=== PATIENT | male | born 1995 | race Caucasian/White ===

== ENCOUNTER 2017-03-10 16:05 | Emergency (ER) | payer OTHER ==
[2017-03-10 16:35] VITALS: PULSE 94; RESP 18; TEMP 98.5
[2017-03-10] MEDS ORDERED: LORazepam 2 MG/ML INJ IM STA (17:04)
[2017-03-10] MEDS ORDERED: diphenhydrAMINE 50 MG/ML 1 ML VIAL IM STA (17:04)
[2017-03-10] MEDS ORDERED: HALOPERIDOL LACTATE 5 MG/ML 1 ML VIAL IM PRN (17:04)
--- NOTE | 2017-03-10 19:49 | ED ---
Psych HPI - General Chief Complaint: Psychiatric Symptoms Stated Complaint: petitioned Time Seen by Provider: 03/10/17 16:36 Source: police, EMS Mode of arrival: EMS - History of Present Illness Initial Comments: 21-year-old development of delayed and nonverbal male presented for evaluation of aggressive behavior. He is at a alf and they state that he has been becoming more aggressive over the last day and hyperactive. There is been no fevers or and occasions of infection as the patient and he has not been coughing or having runny nose. They state he is always very active however today he got so agitated that he took 4 homeworkers to hold him down and prevent from hurting others or himself. - Related Data Home Medications Medication Instructions Recorded Confirmed Divalproex [Depakote] 1,500 mg PO HS 03/10/17 03/10/17 OLANZapine [ZyPREXA] 10 mg PO BID 03/10/17 03/10/17 cloNIDine HCL 0.3 mg PO HS 03/10/17 03/10/17 risperiDONE [RisperDAL] 1 mg PO BID 03/10/17 03/10/17 Allergies Allergy/AdvReac Type Severity Reaction Status Date / Time No Known Allergies Allergy Verified 03/10/17 16:57 Review of Systems ROS Statement: Those systems with pertinent positive or pertinent negative responses have been documented in the HPI. Limited due to patient's nonverbal status. ROS Other: All systems not noted in ROS Statement are negative. Constitutional: Denies: fever, weight change Eyes: Denies: eye discharge ENT: Denies: ear pain, congestion Respiratory: Denies: cough, wheezes Cardiovascular: Denies: edema, syncope Endocrine: Denies: polydipsia, polyuria Gastrointestinal: Denies: vomiting, diarrhea, constipation Genitourinary: Denies: hematuria, discharge Skin: Denies: rash, lesions Neurological: Denies: weakness, abnormal gait Psychiatric: Reports: other (Agitation) Hematological/Lymphatic: Denies: easy bleeding, easy bruising Past Medical History Past Medical History: Unable to Obtain Additional Past Medical History / Comment(s): autism History of Any Multi-Drug Resistant Organisms: Unobtainable Past Surgical History: Unable to Obtain Past Psychological History: ADD/ADHD Smoking Status: Unknown if ever smoked Past Alcohol Use History: Unable to Obtain Past Drug Use History: Unable to Obtain General Exam Limitations: no limitations General appearance: alert, other (Constant movement pacing around room) Head exam: Present: atraumatic, normocephalic, normal inspection Eye exam: Present: normal appearance, PERRL, EOMI. Absent: scleral icterus, conjunctival injection, periorbital swelling ENT exam: Present: normal exam, mucous membranes moist Neck exam: Present: normal inspection. Absent: tenderness, meningismus, lymphadenopathy Respiratory exam: Present: normal lung sounds bilaterally. Absent: respiratory distress, wheezes, rales, rhonchi, stridor Cardiovascular Exam: Present: regular rate, normal rhythm, normal heart sounds. Absent: systolic murmur, diastolic murmur, rubs, gallop, clicks GI/Abdominal exam: Present: soft, normal bowel sounds. Absent: distended, tenderness, guarding, rebound, rigid Rectal exam: Present: deferred Extremities exam: Present: normal inspection, full ROM, normal capillary refill. Absent: tenderness, pedal edema, joint swelling, calf tenderness Back exam: Present: normal inspection Neurological exam: Present: normal gait, other (At baseline per care workers) Psychiatric exam: Present: normal affect, normal mood Skin exam: Present: warm, dry, intact, normal color. Absent: rash Course Vital Signs 03/10/17 16:20 Temperature 98.5 F Pulse Rate 94 Respiratory 18 Rate O2 Sat by Pulse 100 Oximetry Medical Decision Making - Medical Decision Making 21-year-old developmentally delayed and nonverbal male presented from alf for agitation. Upon arrival to the ED he is pacing back and forth and initially was cooperative. However was care workers arrive to became agitated and was not really hitting himself on the wall but hitting his hands on the wall as well as his head. Concern for the patient's well-being with him getting sedated however he continued to pace mildly but was able to relax and sit down. [facility] to [facility] the patient and discovered that he had been having increasing agitation over the last couple weeks and that there is been plans to have admitted to [facility] however there were pending approval by the director medical surgical. The patient was discussed with in-house psych however the patient's mother arrived after seeing him having calm down she stated that she would like to take him home with her and not back to the home. This is discussed with the in-house psychiatrist who agreed with this plan of care. The patient was stable at time of discharge. Mother was informed that she should return to this ED if her symptoms should worsen or persist. The patient's mother acknowledged an understanding of all information provided and agreed with this plan of care. Disposition Clinical Impression: Combative behavior, Bizarre behavior Disposition: HOME SELF-CARE Condition: Stable Instructions: Acute Delirium (ED), Altered Mental Status (ED) Additional Instructions: Please follow up with your PCP and the care facility. If symptoms should worsen or persist please return to the ED for further evaluation. Referrals: Garry Veliz MD [Primary Care Provider] - 1-2 days Time of Disposition: 19:48
== END 2017-03-10 20:19 | disposition home or self-care (01) ==
LOC: EC 16:05
DX: F91.8 Other conduct disorders (principal); F90.9 Attention-deficit hyperactivity disorder, unspecified type; F84.0 Autistic disorder; Z79.899 Other long term (current) drug therapy
CPT/HCPCS: 99284; 96372 ×3; J2060; J1200; J1630

== ENCOUNTER 2019-02-16 10:02 | Emergency (ER) | payer OTHER ==
[2019-02-16 10:14] VITALS: RESP 18
[2019-02-16] MEDS ORDERED: LORazepam 2 MG/ML INJ IV STA (10:35)
[2019-02-16] MEDS ORDERED: SODIUM CHLORIDE 0.9% 1,000 ML IV STA (10:35)
[2019-02-16] MEDS ORDERED: SODIUM CHLORIDE 0.9% 1,000 ML IV ONE (10:38)
--- NOTE | 2019-02-16 10:42 | ED ---
Seizure HPI - General Chief Complaint: Seizure Stated Complaint: Seizure Time Seen by Provider: 02/16/19 10:09 Source: patient, RN notes reviewed, old records reviewed, Caregiver Mode of arrival: EMS Limitations: physical limitation - History of Present Illness Initial Comments: Patient is a 23-year-old male with history of autism. Patient caregiver and father reports that he's been having some [place] description of seizures over the past month. Patient has seen his primary care doctor yesterday and they're scheduled to see a neurologist in the upcoming future. Today while school Patient had a tonic-clonic seizure that lasted approximately 3 minutes. Patient went to the ground, , full and his face. He denies any other specific pains at this time. Patient does have multiple abrasions and contusions over his face. Patient's she reports that he was walking with a abnormal gait prior to his seizure. - Related Data Home Medications Medication Instructions Recorded Confirmed Divalproex [Depakote] 1,500 mg PO HS 03/10/17 03/10/17 OLANZapine [ZyPREXA] 10 mg PO BID 03/10/17 03/10/17 cloNIDine HCL 0.3 mg PO HS 03/10/17 03/10/17 risperiDONE [RisperDAL] 1 mg PO BID 03/10/17 03/10/17 Previous Rx's Medication Instructions Recorded levETIRAcetam [Keppra] 1,000 mg PO Q12HR #40 tab 02/16/19 Allergies Allergy/AdvReac Type Severity Reaction Status Date / Time No Known Allergies Allergy Verified 02/16/19 10:15 Review of Systems ROS Statement: Those systems with pertinent positive or pertinent negative responses have been documented in the HPI. ROS Other: All systems not noted in ROS Statement are negative. Past Medical History Past Medical History: Unable to Obtain Additional Past Medical History / Comment(s): autism History of Any Multi-Drug Resistant Organisms: Unobtainable Past Surgical History: Unable to Obtain Past Psychological History: ADD/ADHD Smoking Status: Unknown if ever smoked Past Alcohol Use History: Unable to Obtain Past Drug Use History: Unable to Obtain General Exam Limitations: physical limitation General appearance: alert, in no apparent distress Head exam: Present: atraumatic, normocephalic, normal inspection Eye exam: Present: normal appearance, PERRL, EOMI. Absent: scleral icterus, conjunctival injection, periorbital swelling ENT exam: Present: normal exam, mucous membranes moist, other (Patient has swelling, significant contusion over the bridge of the nose. Abrasions noted. Oh no open lacerations at this time.) Neck exam: Present: normal inspection. Absent: tenderness, meningismus, lymphadenopathy Respiratory exam: Present: normal lung sounds bilaterally. Absent: respiratory distress, wheezes, rales, rhonchi, stridor Cardiovascular Exam: Present: regular rate, normal rhythm, normal heart sounds. Absent: systolic murmur, diastolic murmur, rubs, gallop, clicks GI/Abdominal exam: Present: soft, normal bowel sounds. Absent: distended, tenderness, guarding, rebound, rigid Extremities exam: Present: normal inspection Back exam: Present: normal inspection Neurological exam: Present: alert, oriented X3, CN II-XII intact Psychiatric exam: Present: normal affect, normal mood Course Vital Signs 02/16/19 02/16/19 02/16/19 10:06 10:17 11:29 Temperature 98 F 97.9 F Pulse Rate 145 H 121 H Respiratory 18 18 Rate Blood Pressure 121/77 124/93 O2 Sat by Pulse 98 98 Oximetry 02/16/19 02/16/19 02/16/19 14:27 14:46 14:48 Temperature 98 F 98 F Pulse Rate 115 H 88 88 Respiratory 18 18 18 Rate Blood Pressure 139/98 167/88 167/88 O2 Sat by Pulse 100 97 97 Oximetry Medical Decision Making - Medical Decision Making 23 year old male with new onset tonic clonic seizure today, with recent history of petit mal description of seizures this past month. Patient saw PCP yesterday, adn had refferall to neuro, but has not had opportunity for follow up at this time. HE hit his face on floor while seizing, and became more aroused in ED. CT brain and cspine and facial bone completed. No acute process identified, besides soft tissue swelling. No fracture, hemorrhages, or masses. LAbs were reviewed and unremarkable. He did receive ativan in ED due to anxiety and agitation prior to CT. PAtient case discussed with Dr. Lynn, internet marketing consultant neurology. Discussed at this time patient should be started on keppra. Discussed possible admission, but family prefers to start medication and follow up outpatiently as previously planned. Abrasions were cleaned over face, discussed motrin and tylenol use. Given loading dose of keppra. - Lab Data Result diagrams: 02/16/19 10:30 02/16/19 10:30 Lab Results 02/16/19 02/16/19 02/16/19 Range/Units 10:30 10:30 10:30 WBC 7.3 (3.8-10.6) k/uL RBC 4.65 (4.30-5.90) m/uL Hgb 14.1 (13.0-17.5) gm/dL Hct 42.5 (39.0-53.0) % MCV 91.4 (80.0-100.0) fL MCH 30.3 (25.0-35.0) pg MCHC 33.2 (31.0-37.0) g/dL RDW 12.9 (11.5-15.5) % Plt Count 152 (150-450) k/uL Neutrophils % 58 % Lymphocytes % 29 % Monocytes % 9 % Eosinophils % 3 % Basophils % 0 % Neutrophils # 4.2 (1.3-7.7) k/uL Lymphocytes # 2.1 (1.0-4.8) k/uL Monocytes # 0.6 (0-1.0) k/uL Eosinophils # 0.2 (0-0.7) k/uL Basophils # 0.0 (0-0.2) k/uL PT 11.1 (9.0-12.0) sec INR 1.0 (<1.2) APTT 24.9 (22.0-30.0) sec Sodium (137-145) mmol/L Potassium (3.5-5.1) mmol/L Chloride (98-107) mmol/L Carbon Dioxide (22-30) mmol/L Anion Gap mmol/L BUN (9-20) mg/dL Creatinine (0.66-1.25) mg/dL Est GFR (CKD-EPI)AfAm (>60 ml/min/1.73 sqM) Est GFR (CKD-EPI)NonAf (>60 ml/min/1.73 sqM) Glucose (74-99) mg/dL POC Glucose (mg/dL) (75-99) mg/dL POC Glu [employer] Instructor ID Calcium (8.4-10.2) mg/dL Magnesium 1.9 (1.6-2.3) mg/dL Total Bilirubin (0.2-1.3) mg/dL AST (17-59) U/L ALT (21-72) U/L Alkaline Phosphatase (38-126) U/L Troponin I (0.000-0.034) ng/mL Total Protein (6.3-8.2) g/dL Albumin (3.5-5.0) g/dL Urine Color Urine Appearance (Clear) Urine pH (5.0-8.0) Ur Specific [place] (1.001-1.035) Urine Protein (Negative) Urine Glucose (UA) (Negative) Urine Ketones (Negative) Urine Blood (Negative) Urine Nitrite (Negative) Urine Bilirubin (Negative) Urine Urobilinogen (<2.0) mg/dL Ur Leukocyte Esterase (Negative) Urine Opiates Screen (NotDetected) Ur Oxycodone Screen (NotDetected) Urine Methadone Screen (NotDetected) Ur Propoxyphene Screen (NotDetected) Ur Barbiturates Screen (NotDetected) Valproic Acid ug/mL U Tricyclic Antidepress (NotDetected) Ur Phencyclidine Scrn (NotDetected) Ur Amphetamines Screen (NotDetected) U Methamphetamines Scrn (NotDetected) U Benzodiazepines Scrn (NotDetected) Urine Cocaine Screen (NotDetected) U Marijuana (THC) Screen (NotDetected) 02/16/19 02/16/19 02/16/19 Range/Units 10:30 10:30 10:30 WBC (3.8-10.6) k/uL RBC (4.30-5.90) m/uL Hgb (13.0-17.5) gm/dL Hct (39.0-53.0) % MCV (80.0-100.0) fL MCH (25.0-35.0) pg MCHC (31.0-37.0) g/dL RDW (11.5-15.5) % Plt Count (150-450) k/uL Neutrophils % % Lymphocytes % % Monocytes % % Eosinophils % % Basophils % % Neutrophils # (1.3-7.7) k/uL Lymphocytes # (1.0-4.8) k/uL Monocytes # (0-1.0) k/uL Eosinophils # (0-0.7) k/uL Basophils # (0-0.2) k/uL PT (9.0-12.0) sec INR (<1.2) APTT (22.0-30.0) sec Sodium 137 (137-145) mmol/L Potassium 3.7 (3.5-5.1) mmol/L Chloride 103 (98-107) mmol/L Carbon Dioxide 20 L (22-30) mmol/L Anion Gap 14 mmol/L BUN 15 (9-20) mg/dL Creatinine 0.93 (0.66-1.25) mg/dL Est GFR (CKD-EPI)AfAm >90 (>60 ml/min/1.73 sqM) Est GFR (CKD-EPI)NonAf >90 (>60 ml/min/1.73 sqM) Glucose 146 H (74-99) mg/dL POC Glucose (mg/dL) (75-99) mg/dL POC Glu [employer] Instructor ID Calcium 9.0 (8.4-10.2) mg/dL Magnesium (1.6-2.3) mg/dL Total Bilirubin 0.7 (0.2-1.3) mg/dL AST 31 (17-59) U/L ALT 35 (21-72) U/L Alkaline Phosphatase 71 (38-126) U/L Troponin I <0.012 (0.000-0.034) ng/mL Total Protein 6.7 (6.3-8.2) g/dL Albumin 4.2 (3.5-5.0) g/dL Urine Color Urine Appearance (Clear) Urine pH (5.0-8.0) Ur Specific [place] (1.001-1.035) Urine Protein (Negative) Urine Glucose (UA) (Negative) Urine Ketones (Negative) Urine Blood (Negative) Urine Nitrite (Negative) Urine Bilirubin (Negative) Urine Urobilinogen (<2.0) mg/dL Ur Leukocyte Esterase (Negative) Urine Opiates Screen (NotDetected) Ur Oxycodone Screen (NotDetected) Urine Methadone Screen (NotDetected) Ur Propoxyphene Screen (NotDetected) Ur Barbiturates Screen (NotDetected) Valproic Acid 69.2 ug/mL U Tricyclic Antidepress (NotDetected) Ur Phencyclidine Scrn (NotDetected) Ur Amphetamines Screen (NotDetected) U Methamphetamines Scrn (NotDetected) U Benzodiazepines Scrn (NotDetected) Urine Cocaine Screen (NotDetected) U Marijuana (THC) Screen (NotDetected) 02/16/19 02/16/19 Range/Units 10:43 11:57 WBC (3.8-10.6) k/uL RBC (4.30-5.90) m/uL Hgb (13.0-17.5) gm/dL Hct (39.0-53.0) % MCV (80.0-100.0) fL MCH (25.0-35.0) pg MCHC (31.0-37.0) g/dL RDW (11.5-15.5) % Plt Count (150-450) k/uL Neutrophils % % Lymphocytes % % Monocytes % % Eosinophils % % Basophils % % Neutrophils # (1.3-7.7) k/uL Lymphocytes # (1.0-4.8) k/uL Monocytes # (0-1.0) k/uL Eosinophils # (0-0.7) k/uL Basophils # (0-0.2) k/uL PT (9.0-12.0) sec INR (<1.2) APTT (22.0-30.0) sec Sodium (137-145) mmol/L Potassium (3.5-5.1) mmol/L Chloride (98-107) mmol/L Carbon Dioxide (22-30) mmol/L Anion Gap mmol/L BUN (9-20) mg/dL Creatinine (0.66-1.25) mg/dL Est GFR (CKD-EPI)AfAm (>60 ml/min/1.73 sqM) Est GFR (CKD-EPI)NonAf (>60 ml/min/1.73 sqM) Glucose (74-99) mg/dL POC Glucose (mg/dL) 149 H (75-99) mg/dL POC Glu [employer] Instructor ID Barbara Chavez Calcium (8.4-10.2) mg/dL Magnesium (1.6-2.3) mg/dL Total Bilirubin (0.2-1.3) mg/dL AST (17-59) U/L ALT (21-72) U/L Alkaline Phosphatase (38-126) U/L Troponin I (0.000-0.034) ng/mL Total Protein (6.3-8.2) g/dL Albumin (3.5-5.0) g/dL Urine Color Yellow Urine Appearance Clear (Clear) Urine pH 6.5 (5.0-8.0) Ur Specific [place] 1.010 (1.001-1.035) Urine Protein Negative (Negative) Urine Glucose (UA) Negative (Negative) Urine Ketones Negative (Negative) Urine Blood Negative (Negative) Urine Nitrite Negative (Negative) Urine Bilirubin Negative (Negative) Urine Urobilinogen <2.0 (<2.0) mg/dL Ur Leukocyte Esterase Negative (Negative) Urine Opiates Screen Not Detected (NotDetected) Ur Oxycodone Screen Not Detected (NotDetected) Urine Methadone Screen Not Detected (NotDetected) Ur Propoxyphene Screen Not Detected (NotDetected) Ur Barbiturates Screen Not Detected (NotDetected) Valproic Acid ug/mL U Tricyclic Antidepress Detected H (NotDetected) Ur Phencyclidine Scrn Not Detected (NotDetected) Ur Amphetamines Screen Not Detected (NotDetected) U Methamphetamines Scrn Not Detected (NotDetected) U Benzodiazepines Scrn Not Detected (NotDetected) Urine Cocaine Screen Not Detected (NotDetected) U Marijuana (THC) Screen Not Detected (NotDetected) 02/16/19 11:15 EKG performed at 1037 shows sinus tachycardia nonspecific T-wave abnormality. Abnormal EKG. Ventricular rate of 132 bpm. Care was 124 ms. QS duration is 84 ms. QT QTc is 306/453 ms. - Radiology Data Radiology results: report reviewed No acute free fracture dislocation evident cervical spine. [facility] urgent elective to seen. small acute scalp hematoma over the right frontal sinus. no acute dyspnea placed facial bone fracture. chest x-rays negative for any acute process. Disposition Clinical Impression: Seizure disorder Disposition: HOME SELF-CARE Condition: Good Instructions (If sedation given, give patient instructions): New-Onset Seizure in Adults (ED) Additional Instructions: Patient is recommended to start the Keppra as discussed. Follow up outpatient only with neurology. Return to the emergency department if any alarming signs o r symptoms occur. Prescriptions: levETIRAcetam [Keppra] 1,000 mg PO Q12HR #40 tab Is patient prescribed a controlled substance at d/c from ED?: No Referrals: Garry Veliz MD [Primary Care Provider] - 1-2 days Dario Coulter MD [Medical Doctor] - 1-2 days Vikash Nixon DO [STAFF PHYSICIAN] - 1-2 days Time of Disposition: 14:00
[2019-02-16 10:46] LABS: Glucose,Whole Blood 149 mg/dL (75-99)
[2019-02-16 11:04] LABS: Basophils % (A) 0 %; Eosinophils # (A) 0.2 k/uL (0-0.7); Eosinophils % (A) 3 %; HCT 42.5 % (39.0-53.0); HGB 14.1 gm/dL (13.0-17.5); Lymphocytes # (A) 2.1 k/uL (1.0-4.8); Lymphocytes % (A) 29 %; MCH 30.3 pg (25.0-35.0); MCHC 33.2 g/dL (31.0-37.0); MCV 91.4 fL (80.0-100.0); Mean Platelet Volume 8.5; Monocytes # (A) 0.6 k/uL (0-1.0); Monocytes % (A) 9 %; Neutrophils # (A) 4.2 k/uL (1.3-7.7); Neutrophils % (A) 58 %; Platelet Count 152 k/uL (150-450); RBC 4.65 m/uL (4.30-5.90); RDW 12.9 % (11.5-15.5); WBC 7.3 k/uL (3.8-10.6)
[2019-02-16 11:20] LABS: Partial Thromboplastin Time 24.9 sec (22.0-30.0); Prothrombin Time 11.1 sec (9.0-12.0)
--- NOTE | 2019-02-16 11:22 | XR ---
EXAMINATION TYPE: XR chest 2V DATE OF EXAM: 02/16/2019 COMPARISON: NONE HISTORY: Altered mental status TECHNIQUE: Frontal and lateral views of the chest are obtained. FINDINGS: There is no focal air space opacity, pleural effusion, or pneumothorax seen. The cardiac silhouette size is within normal limits. The osseous structures are intact. IMPRESSION: No acute cardiopulmonary process.
--- NOTE | 2019-02-16 11:29 | CT ---
EXAMINATION TYPE: CT brain cspine wo con, CT facial bones wo con DATE OF EXAM: 02/16/2019 COMPARISON: NONE HISTORY: Seizure today with facial pain, headache, and neck pain. CT DLP: 1167 mGycm. Automated Exposure Control for Dose Reduction was Utilized. TECHNIQUE: CT scan of the head and cervical spine are performed without contrast. FINDINGS: There is no acute intracranial hemorrhage, mass effect, or midline shift identified. The ventricles and sulci are within normal limits in size. Hernández-white matter differentiation fairly well maintained. The calvarium is intact. Mandible is intact. Temporomandibular joints are maintained bilaterally. Nasal bones are intact. Orbi grupo floors and brewer are intact. The globes are intact bilaterally. Intraconal fat is preserved. Zygo matic arches are intact. Pterygoid plates are intact. Visualized maxilla is intact. Small degree of m ucosal thickening in the inferior aspect bilateral maxillary sinuses. Some dependent fluid inferiorly left frontal sinus. Additional patchy dependent fluid posterior ethmoid sinuses. Patchy fluid left s phenoid sinus. Small hematoma over the right frontal sinus noted seen best coronal image 10. Cervical spine is visualized in its entirety from C1 through upper thoracic levels and demonstrates s atisfactory alignment without evidence of acute fracture or dislocation. Prevertebral soft tissue ap pears within normal limits. The C1-C2 articulation is within normal limits on the coronal images. V ertebral body heights and disc space heights are maintained. Spinal canal is preserved. Thyroid gland within normal limits. Axial images unremarkable. Lung apices are clear. IMPRESSION: 1. There is no acute fracture or dislocation evident in the cervical spine. 2. No acute intracranial hemorrhage or midline shift is seen. 3. Small acute scalp hematoma over right frontal sinus. No acute displaced facial bone fracture.
[2019-02-16 12:32] LABS: ALT 35 U/L (21-72); AST 31 U/L (17-59); African American GFR (CKD) >90 (>60 ml/min/1.73 sqM); Albumin 4.2 g/dL (3.5-5.0); Alkaline Phosphatase 71 U/L (38-126); Anion Gap 14 mmol/L; Blood Urea Nitrogen 15 mg/dL (9-20); Carbon Dioxide 20 mmol/L (22-30); Chloride 103 mmol/L (98-107); Glucose 146 mg/dL (74-99); Non-African American GFR(CKD) >90 (>60 ml/min/1.73 sqM); Potassium 3.7 mmol/L (3.5-5.1); Sodium 137 mmol/L (137-145); Total Bilirubin 0.7 mg/dL (0.2-1.3); Total Protein 6.7 g/dL (6.3-8.2)
[2019-02-16 12:48] LABS: Appearance,Urine Clear (Clear); Bilirubin,Urine Negative (Negative); Blood,Urine Negative (Negative); Color,Urine Yellow; Glucose,Urine (UA) Negative (Negative); Ketones,Urine Negative (Negative); Leukocyte Esterase,Urine Negative (Negative); Nitrite,Urine Negative (Negative); PH, Urine 6.5 (5.0-8.0); Protein,Urine Negative (Negative); Urobilinogen,Urine <2.0 mg/dL (<2.0)
[2019-02-16 13:18] LABS: Amphetamine Screen,Urine Not Detected (NotDetected); Barbiturate Screen,Urine Not Detected (NotDetected); Benzodiazepines Screen,Urine Not Detected (NotDetected); Cocaine Screen,Urine Not Detected (NotDetected); Methadone Screen, Urine Not Detected (NotDetected); Opiate Screen,Urine Not Detected (NotDetected); Oxycodone Screen, Urine Not Detected (NotDetected); Tricyclic Antidepressant,Urine Detected (NotDetected); Urn Cannabinoid Scrn Not Detected (NotDetected)
[2019-02-16 13:38] LABS: Phencyclidine Screen,Urine Not Detected (NotDetected)
[2019-02-16] MEDS ORDERED: levETIRAcetam IV 1,000 MG in SALINE 1 100ML.BAG IVPB STA (13:41)
[2019-02-16 14:29] VITALS: TEMP 98
[2019-02-16 14:49] VITALS: BP 167/88; PULSE 88
== END 2019-02-16 14:49 | disposition home or self-care (01) ==
LOC: EC 10:02
DX: G40.909 Epilepsy, unspecified, not intractable, without status epilepticus (principal); F41.9 Anxiety disorder, unspecified; S00.33XA Contusion of nose, initial encounter; F90.9 Attention-deficit hyperactivity disorder, unspecified type; F84.0 Autistic disorder; Z79.899 Other long term (current) drug therapy; W19.XXXA Unspecified fall, initial encounter
CPT/HCPCS: 36415; 93005; 80164; 80053; 83735; 84484; 85025; 85610; 85730; 81003; 80306; 71046; 72125; 70486; 70450; 99285; 96365; 96375; 96361 ×3; J2060; J1953